=== PATIENT | female | born 1945 | race Caucasian/White ===

== ENCOUNTER → 2020-03-28 17:32 | Outpatient (CLI) | payer MEDICARE, MEDICAID, SELFPAY ==
[2019-09-13 15:20] VITALS: BMI 19.0
== END ==
PROVIDERS: Referring Provider Nurse Practitioner Adult Health; Visit Provider Nurse Practitioner Adult Health
DX: J98.8 Other specified respiratory disorders (principal)
CPT/HCPCS: 87635; U0004

== ENCOUNTER 2020-04-21 21:07 | Emergency (ER) | payer MEDICARE, SELFPAY ==
[2019-09-13 15:20] VITALS: BMI 19.0
[2020-04-21 21:09] VITALS: BP 156/83; PULSE 106; RESP 18; TEMP 36.6; O2SAT 97; BMI 18.6
[2020-04-21 21:23] VITALS: BP 144/93; PULSE 112; RESP 24; RESP 26; TEMP 36.4; O2SAT 99
--- NOTE | 2020-04-21 21:58 | US_ITS ---
STUDY: ULTRASOUND TRANSVAGINAL CLINICAL: Female, 75 years old. VAGINAL BLEEDING -- POSITIVE COVIG TECHNIQUE: Transvaginal COMPARISON: None. FINDINGS: Normal uterine size measuring 6.8 x 4.2 x 2.1 cm in maximal craniocaudal dimension. There are no myometrial masses. Normal endometrial thickness measuring 5 mm. There are no endometrial masses, and there is no fluid in the endometrial cavity. Normal uterine cervix. Normal right ovary, measuring 2.8 x 2.8 x 2.1 cm. There is a cyst measuring 2 cm. The LEFT ovary is not identified. There is no free fluid in the pelvis. There is a heterogeneous mass in the urinary bladder measuring 9.5 x 9.6 x 7.6 cm. This could be hematoma. Tumor not excluded. US/Pelvic (Non ) IMPRESSION: Normal uterus. 2 cm RIGHT ovarian cyst. LEFT ovary not seen. There is a heterogeneous mass in the urinary bladder measuring 9.5 x 9.6 x 7.6 cm. This could be hematoma. Tumor not excluded. Electronically Signed: Terry Mendoza MD at 0:38 EDT , Service support ,
--- NOTE | 2020-04-21 21:59 | ED.DCSUM_ITS ---
History of Present Illness Informant: SNF Onset: Today Narrative: Sent in from [facility] for acute vaginal bleeding today. Patient on aspirin and Brilinta the reported clots that she looked more pale. Patient history of dementia baseline x1-2. Patient denies any pain. <Agapito Grewal - Last Filed: 04/22/20 00:58> <Vish Saleh - Last Filed: 04/22/20 08:13> <Jaylen Pugh - Last Filed: 04/22/20 09:53> Chief Complaint: Vag Bleeding Past Medical History Past Medical History: - - SC, coronary disease, hypertension, cardiomyopathy, CVA, dementia Surgical History: - - Cardiac stent, left ICA stent. Smoking Status: Former smoker - Family History Maternal Family History: Family History (Last Reviewed 09/13/19 @ 15:28 by Miya Bateman) Unknown No problems noted. Family History: Reports: - - Unable to obtain as patient has aphasia post stroke <Agapito Grewal - Last Filed: 04/22/20 00:58> - Family History Maternal Family History: Family History (Last Reviewed 09/13/19 @ 15:28 by Miya Nolt) Unknown No problems noted. <Vish Saleh - Last Filed: 04/22/20 08:13> - Family History Maternal Family History: Family History (Last Reviewed 09/13/19 @ 15:28 by Miya No) Unknown No problems noted. <Jaylen Pugh - Last Filed: 04/22/20 09:53> - Allergies and Home Meds Allergies/Adverse Reactions: Allergies ciprofloxacin [From Cipro] Allergy (Verified 04/21/20 21:19) Unknown ciprofloxacin HCl [From Cipro] Allergy (Verified 04/21/20 21:19) Unknown Penicillins Allergy (Verified 04/21/20 21:19) Unknown Sulfa (Sulfonamide Antibiotics) Allergy (Verified 04/21/20 21:19) Unknown Primary Care Physician: Robe Christiansen MD [Primary Care Provider] - Review of Systems General: Denies: Chills, Fever, Sweats Eyes: Denies: Visual changes - bilaterally, Diplopia ENT: Denies: Rhinorrhea, Sore throat Cardiovascular: Denies: Chest pain, Palpitations Respiratory: Denies: Dyspnea, Cough, Dyspnea on exertion Gastrointestinal: Denies: Abdominal pain, Nausea, Vomiting, Diarrhea, Melena, Hematochezia Genitourinary: Reports: - - Vaginal bleeding. Denies: Dysuria, Hematuria, Frequency Musculoskeletal: Denies: Back pain, Extremity Pain Skin: Denies: Rash, Wounds Neurological: Denies: Headache, Weakness, Numbness <Agapito Grewal - Last Filed: 04/22/20 00:58> Physical Exam Vital Signs/Narrative: Vital Signs Temp Pulse Resp BP Pulse Ox 04/21/20 21:23 97.6 F L 112 H 24 H 144/93 H 99 04/21/20 21:09 97.8 F 106 H 18 156/83 H 97 Inital Vital Signs reviewed: Yes General: Well nourished, Well developed, No Acute Distress Head: Normocephalic, Atraumatic Eyes: Perrl, EOMI, - - Mild pale conjunctiva ENT: Moist mucous membranes, No rhinorrhea Neck: Supple, Nontender Cardiovascular: Regular rate, Regular rhythm, No murmurs, Tachycardia Respiratory: No distress, CTA bilaterally, Chest nontender Abdomen: Soft, Nontender, Nondistended, Normal bowel sounds : - - Speculum exam, there was small clots from the cervical office, upon removal speculum, small gush of blood. No signs of trauma. Back: Nontender, Normal Inspection Extremities: Nontender, No edema Skin: Normal color, No rash Neurological: Alert, Oriented x3, Cranial nerves II-XII grossly intact, Normal Strength, Normal Sensation Psychological: Normal affect, Normal Mood <Agapito Grewal - Last Filed: 04/22/20 00:58> Vital Signs/Narrative: Vital Signs Temp Pulse Resp BP Pulse Ox 04/22/20 08:00 97.8 F 123 H 19 H 124/81 H 98 04/22/20 07:00 97.8 F 112 H 18 125/80 H 99 04/22/20 06:00 97.9 F 138 H 27 H 135/92 H 98 04/22/20 05:00 98.6 F 128 H 35 H 137/89 H 96 <Vish Saleh - Last Filed: 04/22/20 08:13> Vital Signs/Narrative: Vital Signs Temp Pulse Resp BP Pulse Ox 04/22/20 09:00 97.9 F 123 H 18 100/66 99 04/22/20 08:00 97.8 F 123 H 19 H 124/81 H 98 04/22/20 07:00 97.8 F 112 H 18 125/80 H 99 04/22/20 06:00 97.9 F 138 H 27 H 135/92 H 98 <Jaylen Pugh - Last Filed: 04/22/20 09:53> Diagnostic/Tx/Re-eval Chest X-Ray - ED: 1 View, Read by ED Physician, No Acute Disease Abnormal Lab Results 04/21/20 04/21/20 04/21/20 21:27 21:27 21:27 WBC 20.0 H RBC 4.04 L Hgb 12.7 Hct 40.5 MCV 100.2 H MCH 31.4 MCHC 31.4 L RDW Std Deviation 54.7 H RDW Coeff of Imelda 14.8 H Plt Count 230 MPV 13.2 H Immature Gran % (Auto) 0.400 Neut % (Auto) 89.7 H Lymph % (Auto) 2.5 L [place] % (Auto) 7.2 Eos % (Auto) 0.0 Baso % (Auto) 0.2 Absolute Neuts (auto) 17.9 H Absolute Lymphs (auto) 0.51 L Nucleated RBC % 0 Differential Comment SCANNED Platelet Estimate ADEQUATE RBC Morphology NORM C+C PT Cancelled INR Cancelled APTT Cancelled Sodium 138 Potassium 5.4 H Chloride 106 Carbon Dioxide 22.0 Anion Gap 10 BUN 28 H Creatinine 1.23 H Estim Creat Clear Calc 32.59 Est GFR (MDRD) Af Amer 54 L Est GFR (MDRD) Non-Af 45 L BUN/Creatinine Ratio 22.8 H Glucose 174 H Calcium 9.5 Blood Type Antibody Screen 04/21/20 04/21/20 04/21/20 21:27 22:20 22:48 WBC RBC Hgb Hct MCV MCH MCHC RDW Std Deviation RDW Coeff of Imelda Plt Count MPV Immature Gran % (Auto) Neut % (Auto) Lymph % (Auto) [place] % (Auto) Eos % (Auto) Baso % (Auto) Absolute Neuts (auto) Absolute Lymphs (auto) Nucleated RBC % Differential Comment Platelet Estimate RBC Morphology PT 14.1 INR 1.1 APTT 26.3 Sodium Potassium Chloride Carbon Dioxide Anion Gap BUN Creatinine Estim Creat Clear Calc Est GFR (MDRD) Af Amer Est GFR (MDRD) Non-Af BUN/Creatinine Ratio Glucose Calcium Blood Type Cancelled O NEGATIVE Antibody Screen Cancelled NEGATIVE - EKG Initial EKG Interpretation: Sinus Rhythm - Sinus rate of 138, no ST or T wave changes. - Medical Decision Making Patient was tachycardic on arrival blood pressure stable. Speculum examination noted small blood at the cervical office, however there was a gush of blood after removal. With her tachycardia and reported bleeding history, do feel stat ultrasound was required to evaluate the uterus due to reported clots of blood on aspirin and Brilinta. Her lab work did note stable hemoglobin of 12.6. However white count returned at 20. She is not febrile. Chest x-ray ordered along with a urine for further evaluation. Upon review of patient's paperwork that was brought with the patient notes she is a DNR comfort care only. Discussion with procurement technician performing the pelvic ultrasound had concerning bladder mass reported to me. This likely explains a gush of blood upon speculum removal. I discussed with covering physician Dr. Chan who received a call from facility about the bleeding was unaware that patient was a DNR CC. She agrees that further imaging to evaluate this potential mass is not required and can be managed as an outpatient. She will hold anti-coagulants at the facility and related to her PCP. They will likely make her hospice. However with the white count, pending a urine sample before disposition. Patient signed out to night physician. <CarminaAgapito - Last Filed: 04/22/20 00:58> - Medical Decision Making I took checkout on this patient in care for her throughout the overnight cashier. We placed a catheter twice to get a urine sample however only blood clot was o btained and no urine. I had nursing place a large bore Starr 24 [place] catheter, a large blood clot was removed, followed by bloody urine. We placed her on continuous bladder irrigation, which resulted in patent flow and continuously bloody irrigant. Ultrasound results show a 9 cm bladder mass versus hematoma. I discussed with urology, Dr. castaneda. He said the likely management if this is truly a mass would be a cystectomy. I discussed with Santa, the daughter and power of claims attorney. She is considering options, which from here include admission for continuous bladder irrigation and further work- up, or placing the patient on hospice as above, at which point we would stop the continuous bladder irrigation, leave the Starr in, and discharge her back to [facility] [place] with a hospice consultation. Also as above, if that is the case, antiplatelet medications will likely be held by the PCP. <Vish Saleh - Last Filed: 04/22/20 08:13> - Medical Decision Making Patient was signed out to me to assist the disposition. According to the family, the patient will be discharged back to [facility] [place] with a hospice consultation. Patient was discharged from the ED. <Jaylen Pugh - Last Filed: 04/22/20 09:53> ED Disposition <Agapito Grewal - Last Filed: 04/22/20 00:58> <Vish Saleh - Last Filed: 04/22/20 08:13> <Jaylen Pugh - Last Filed: 04/22/20 09:53> - Plan for ED Patient: Diagnosis: Hematuria Referrals: Robe Christiansen MD [Primary Care Provider] -
--- NOTE | 2020-04-21 22:01 | EKG12_ITS ---
Test Reason : DYSRHYTHMIA Blood Pressure : / mmHG Vent. Rate : 138 BPM Atrial Rate : 138 BPM P-R Int : 124 ms QRS Dur : 088 ms QT Int : 290 ms P-R-T Axes : 077 -75 080 degrees QTc Int : 439 ms Ectopic Atrial Tachycardia Left axis deviation Inferior-posterior infarct (cited on or before 18-NOV-2016) Abnormal ECG Confirmed by JACEK VOSS, BEATRIZ ([id number]), editor managing director HAYDEN GANDHI ([id number]) on 04/29/2020 1:52:14 PM Referred By: TL Confirmed By:BEATRIZ READ MD
[2020-04-21 22:06] LABS: Absolute Lymphocyte Count 0.51 X10^3/uL (0.83-4.51); Absolute Neutrophil Count 17.9 X10^3/uL (2.0-7.7); Basophil# 0.05 X10^3/uL; Basophil% 0.2 % (0-1); Hematocrit 40.5 % (37-47); Hemoglobin 12.7 g/dL (12.0-15.0); Lymphocyte # 0.51 X10^3/ul (4.0); Lymphocyte % 2.5 % (19-41); Mean Corp Hgb Conc 31.4 g/dL (32-36); Mean Corpuscular Hgb 31.4 pg (27.0-32.0); Mean Corpuscular Volume 100.2 fL (81-99); Mean Platelet Vol. 13.2 fl (6.2-12.0); Monocyte# 1.45 X10^3/uL; Monocyte% 7.2 % (0-10); NRBC Flagged by Analyzer 0 % (0-5); Neutrophil # 17.92 X10^3/uL (2.7-7.7); Neutrophil % 89.7 % (47-70); POSITIVE DIFFERENTIAL YES; Platelet Count 230 K/mm3 (150-450); RBC Distribution Width CV 14.8 % (11.6-14.6); RBC Distribution Width SD 54.7 fl (35.1-43.9); Red Blood Count 4.04 M/mm3 (4.2-5.4)
[2020-04-21 22:14] LABS: Differential Indicated SCAN CRITERIA MET
[2020-04-21 22:16] LABS: Anion Gap 10 (5-15); BUN 28 mg/dL (7-18); BUN/Creat Ratio 22.8 RATIO (10-20); Calcium,Total 9.5 mg/dL (8.5-10.1); Chloride 106 mmol/L (98-107); Creatinine, Serum 1.23 mg/dL (0.55-1.02); EST Glomerular Filtration Rate 45 mL/min (>60); Est Glom Filt Rate - Afr Amer 54 mL/min (>60); Estimated Creatinine Clearance 32.59 ml/min; Glucose 174 mg/dL (74-106); Potassium 5.4 mmol/L (3.5-5.1); Sodium Level 138 mmol/L (136-145)
[2020-04-21 22:35] VITALS: BP 145/86; PULSE 125; RESP 18; TEMP 36.6; O2SAT 99
[2020-04-21 22:42] LABS: Differential Comment SCANNED; Platelet Estimate ADEQUATE (ADEQ); Red Cell Morphology NORM C+C NORMAL (NORM C&C)
[2020-04-21 22:52] LABS: International Normalized Ratio 1.1; Partial Thromboplast Time 26.3 Seconds (24.1-36.2); Prothrombin Time (Protime)PT. 14.1 SECONDS (11.7-14.9)
[2020-04-22] VITALS (10 sets, daily range): BP systolic 100–137; BP diastolic 66–98; PULSE 112–138; RESP 18–35; TEMP 36.4–37.1; O2SAT 95–99
--- NOTE | 2020-04-22 | RAD_ITS ---
STUDY: X-RAY CHEST REASON FOR EXAM: Female, 75 years old. leukocytosis -- tested + COVID on 04/01/20 -- came in for vaginal bleeding TECHNIQUE: Frontal view COMPARISON: December 08, 2016 FINDINGS: There calcified granulomas of the RIGHT lung base. Lungs are expanded. There are NO infiltrates. There is no demonstrated pleural abnormality. Normal size heart. Normal mediastinum and shobha. Normal visualized pulmonary arteries. Normal visualized aortic arch and descending thoracic aorta. Normal visualized thoracic spine. Normal visualized ribs, clavicles, and shoulders. There is no demonstrated abnormality of the visualized soft tissue structures of the upper abdomen. RAD/Chest 1 View (Portable) IMPRESSION: There are NO acute cardiopulmonary abnormalities. Electronically Signed: Terry Mendoza MD at 1:09 EDT , Service support ,
--- NOTE | 2020-04-22 03:36 | ED.RN ---
Update given to Mavis from [facility].
[2020-04-22 04:38] LABS: Bacteria 0 SEEN /hpf (None Seen); Mucous, Urine 0 SEEN /hpf (<or=2+); Squamous Epithelial Cells - UA 0 SEEN /hpf (5-10)
[2020-04-22 04:48] LABS: Color, Urine Red (Yellow); Red Blood Cells-Urine > 100 SEEN /hpf (0-5); Urine Clarity Turbid (Clear); White Blood Cells 10-25 SEEN /hpf (0-5)
[2020-04-22] MEDS: Ondansetron 4 MG/2 ML Vial IV (05:12)
--- NOTE | 2020-04-22 09:54 | ED.DEP ---
ED Disposition - Plan for ED Patient: Diagnosis: Hematuria Instructions: ED Hematuria Referrals: Robe Christiansen MD [Primary Care Provider] -
== END 2020-04-22 10:47 | disposition intermediate care facility (04) ==
PROVIDERS: Emergency Provider Emergency Medicine; PCP Family Medicine
DX: R31.9 Hematuria, unspecified (principal); I25.10 Atherosclerotic heart disease of native coronary artery without angina pectoris; Z87.891 Personal history of nicotine dependence; Z95.5 Presence of coronary angioplasty implant and graft; Z79.82 Long term (current) use of aspirin
CPT/HCPCS: 51702; 71045; 76856; 80048; 81001; 85025; 85610; 85730; 86850; 86900; 86901; 93005; 96361; 96374; 99285; J7040; P9612; A4216; J2405